=== PATIENT | female | born 1955 | race Caucasian/White ===

== ENCOUNTER 2016-03-17 12:07 | Emergency (ER) | payer OTHER ==
[2016-03-17 12:19] VITALS: TEMP 98.5; BMI 27.9
[2016-03-17] MEDS ORDERED: SODIUM CHLORIDE 0.9% 3 ML FLUSH FLUSH PRN (12:22)
[2016-03-17] MEDS ORDERED: PANTOPRAZOLE 40 MG VIAL IV ONE (12:26)
--- NOTE | 2016-03-17 12:35 | EDPRACDOC ---
- General Information Chief Complaint: Abdominal Pain Stated Complaint: UPPER ABDOMINAL PAIN Time Seen by Provider: 03/17/16 12:22 Information Source: Patient Mode Of Arrival: Car Home Medications: Home Medications Ergocalciferol (Vitamin D2) [Vitamin D2 (ergocalciferol)] 50,000 units PO WE Levothyroxine Sodium [Synthroid] 50 mcg PO DAILY 12/09/13 Fish Oil/Dha/Epa [Fish Oil 1,200 mg Fish Oil] 1 cap PO DAILY 09/11/15 Flaxseed/Omega3,6,9/Fatty Acid [Flax Seed Oil 1,300 mg Softgel] 1 cap PO DAILY 09/11/15 Glucosamine/D3/Boswellia Cheyanne [Osteo Bi-Flex Caplet] 1 tab PO DAILY 09/11/15 Ketoprofen 50 mg PO BID PRN #20 capsule 09/11/15 Magnesium 250 mg PO DAILY 09/11/15 Pregabalin [Lyrica] 225 mg PO BID 09/11/15 Azithromycin [Zithromax] 250 mg PO DAILY #6 tablet 11/23/15 Diazepam [Valium] 5 mg PO BID PRN 11/23/15 Pentazocine HCl/Naloxone HCl [Talwin Nx Tablet] 1 each PO BID PRN #20 tablet Prednisone [Deltasone, Orasone] 20 mg PO BID #12 tab 11/23/15 Omeprazole 20 mg PO DAILY #20 capsule. 03/17/16 Ondansetron HCl [Zofran] 4 mg PO Q8H PRN #15 tab 03/17/16 Allergies/Adverse Reactions: Allergies Allergy/AdvReac Type Severity Reaction Status Date / Time No Known Allergies Allergy Verified 03/17/16 12:20 - History of Present Illness Onset: 1 week HPI: Patient reports epigastric pain worse with laying, decreased appetite intermittently x 2 wks, worse over the last week. Patient reports nausea and occasionally vomiting. No fever, chills, diarrhea. No hx of similar. Pain Location: Reports: Epigastric Pain Context: Reports: Spontaneous Pain Severity: Mild Pain Quality: Reports: Burning, Cramping Pain Radiation: Reports: No Radiation Modifying Factors: improves with: Position Female Associated Signs & Symptoms: Reports: Nausea, Vomiting. 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 Denies: Pneumonia Musculoskeletal History: Reports: Arthritis (oa L HIP) Psychological History: Reports: Depression, Anxiety Systemic History: Reports: Hypothyroidism - Family Medical History Reports: Hypertension (MOTHER), Diabetes (MOTHER,UNCLE), Cancer (AUNT- COLON, SISTER- BREAST), Stroke (GRANDMOTHER), Cardiac Disorders (FATHER-HI) - Social Medical History Smoking Status: Light tobacco smoker (less than 5/day) ETOH: None Substance Abuse: None Lives In: Home EDM Review of Systems - Review of Systems ROS Negative Except as Marked: Yes All systems reviewed and were negative except as marked Constitutional: No Symptoms Reported Eyes: No Symptoms Reported Ears: No Symptoms Reported Throat: No Symptoms Reported Nose: No Symptoms Reported Respiratory: No Symptoms Reported Cardiovascular: No Symptoms Reported Gastrointestinal: Nausea, Pain, Vomiting. negative: Constipation, Diarrhea Genitourinary: No Symptoms Reported Neurological: No Symptoms Reported - Physical Exam Constitutional: Alert (Awake), No apparent distress Oriented to: Time, Person, Place Last recorded Vital Signs: Last Vital Signs Temp 98.5 F 03/17/16 12:15 Pulse 87 03/17/16 12:15 Resp 18 03/17/16 12:15 BP 122/20 L 03/17/16 12:15 Pulse Ox 97 03/17/16 12:15 Oxygen Pulse Oxygen Saturation 97 O2 Device Room Air Oxygen Flow Rate Fraction of Inspired Oxygen ( FIO2) - HEENT Head: Normal ( normocephalic) Eye Exam: Normal (PERRL, EOMI, Sclera white) Nose: No Symptoms Reported (septum midline) Neck: Normal (FROM, trachea at midline) - Respiratory/Cardiovascular Respiratory: Normal - CTA (BBS clear to auscultation without adventitious sounds ) Cardiovascular: Normal (RRR without murmur, gallop or rub) - GI Auscultation: Normal (NABS) Tenderness: Mild, RUQ, LUQ, Epigastric - Musculoskeletal Back: Normal (Non-Tender) Extremities: Normal (Normal tone, Pulses 2+ No cyanosis or edema, FROM) - Integumentary Skin: Normal, Warm, Dry Lymphatics: Normal (no adenopathy) - Neurologic Memory Impaired: Normal Motor Function: Normal (Normal tone, Pulses 2+ No cyanosis or edema, FROM) Mood Description: Normal - Re-evaluation Re-evaluation 1 Re-evaluation Time: 13:16 Discussed with patient the need for followup for further evaluation possible gallbladder workup. Nausea medication and PPI for home. Return if worse/ different. Stay hydrated. - Results 03/17/16 12:33 03/17/16 12:33 WBC 9.8 xk/uL (3.8-10.8) 03/17/16 12:33 RBC 4.67 xM/uL (4.20-5.40) 03/17/16 12:33 Hgb 14.3 g/dL (12.0-16.0) 03/17/16 12:33 Hct 42.5 % (36-47) 03/17/16 12:33 MCV 91 fL (81-99) 03/17/16 12:33 MCH 30.7 pg (27-32) 03/17/16 12:33 MCHC 33.8 g/dl (33-36) 03/17/16 12:33 RDW 13.2 % (11.5-14.5) 03/17/16 12:33 Plt Count 309 xk/uL (130-400) 03/17/16 12:33 MPV 8.4 fL (7.4-10.4) 03/17/16 12:33 Neut % (Auto) 57.3 % (45-76) 03/17/16 12:33 Lymph % (Auto) 33.1 % (17-44) 03/17/16 12:33 [place] % (Auto) 7.5 % (3-10) 03/17/16 12:33 Eos % (Auto) 0.7 % (0-5) 03/17/16 12:33 Baso % (Auto) 1.4 % (0-2) 03/17/16 12:33 Absolute Neuts (auto) 5.59 xk/uL (1.7-8.2) 03/17/16 12:33 Absolute Lymphs (auto) 3.23 xk/uL (0.65-4.75) 03/17/16 12:33 Sodium 139 mEq/L (137-146) 03/17/16 12:33 Potassium 4.1 mEq/L (3.5-5.1) 03/17/16 12:33 Chloride 102 mEq/L (98-107) 03/17/16 12:33 Carbon Dioxide 26 mMOL/L (22-33) 03/17/16 12:33 Anion Gap 15 mEq/L (8-16) 03/17/16 12:33 BUN 14 MG/DL (7-17) 03/17/16 12:33 Creatinine 0.80 MG/DL (0.52-1.04) 03/17/16 12:33 Estimated GFR (MDRD) > 60 mL/min (>=60) 03/17/16 12:33 Glucose 98 MG/DL (70-99) 03/17/16 12:33 Calculated Osmolality 269 MOs/Kg (270-290) L 03/17/16 12:33 Calcium 9.7 MG/DL (8.4-10.2) 03/17/16 12:33 Total Bilirubin 0.5 MG/DL (0.2-1.3) 03/17/16 12:33 AST 17 IU/L (14-36) 03/17/16 12:33 ALT 25 IU/L (9-52) 03/17/16 12:33 Alkaline Phosphatase 67 IU/L (55-165) 03/17/16 12:33 Total Protein 7.8 G/DL (6.3-8.2) 03/17/16 12:33 Albumin 4.5 G/DL (3.5-5.0) 03/17/16 12:33 Lipase 79 U/L (23-300) 03/17/16 12:33 Urine Color Pale yell0w 03/17/16 12:30 Urine Clarity Hazy 03/17/16 12:30 Urine pH 7.0 (5.0-8.0) 03/17/16 12:30 Ur Specific [place] 1.010 (1.003-1.035) 03/17/16 12:30 Urine Protein Neg (NEG/TRACE) 03/17/16 12:30 Urine Glucose (UA) Neg (NEGATIVE) 03/17/16 12:30 Urine Ketones Neg (NEGATIVE) 03/17/16 12:30 Urine Occult Blood Trace (NEG/TRACE) 03/17/16 12:30 Urine Nitrite Neg (NEGATIVE) 03/17/16 12:30 Urine Bilirubin Neg (NEGATIVE) 03/17/16 12:30 Urine Urobilinogen 0.2 MG/DL (0-1) 03/17/16 12:30 Ur Leukocyte Esterase Trace (NEGATIVE) 03/17/16 12:30 Urine RBC 2-5 (0-5) 03/17/16 12:30 Urine WBC 0-2 (0-5) 03/17/16 12:30 Ur Epithelial Cells 2+ 03/17/16 12:30 Urine Bacteria Few (NEG/FEW) 03/17/16 12:30 Lab Results 03/17/16 03/17/16 03/17/16 12:33 12:33 12:30 WBC 9.8 RBC 4.67 Hgb 14.3 Hct 42.5 MCV 91 MCH 30.7 MCHC 33.8 RDW 13.2 Plt Count 309 MPV 8.4 Neut % (Auto) 57.3 Lymph % (Auto) 33.1 [place] % (Auto) 7.5 Eos % (Auto) 0.7 Baso % (Auto) 1.4 Absolute Neuts (auto) 5.59 Absolute Lymphs (auto) 3.23 Sodium 139 Potassium 4.1 Chloride 102 Carbon Dioxide 26 Anion Gap 15 BUN 14 Creatinine 0.80 Estimated GFR (MDRD) > 60 Glucose 98 Calculated Osmolality 269 L Calcium 9.7 Total Bilirubin 0.5 AST 17 ALT 25 Alkaline Phosphatase 67 Total Protein 7.8 Albumin 4.5 Lipase 79 Urine Color Pale yell0w Urine Clarity Hazy Urine pH 7.0 Ur Specific [place] 1.010 Urine Protein Neg Urine Glucose (UA) Neg Urine Ketones Neg Urine Occult Blood Trace Urine Nitrite Neg Urine Bilirubin Neg Urine Urobilinogen 0.2 Ur Leukocyte Esterase Trace Urine RBC 2-5 Urine WBC 0-2 Ur Epithelial Cells 2+ Urine Bacteria Few - EKG EKG #1 EKG Time: 12:41 -: Yes EKG interpreted by me Rate: bpm: 72 [place]: Normal Rhythm: NSR Block: None ST: Normal Decision Time to Discharge: 13:30 - Departure Disposition: Home Condition: Stable Final Diagnosis: Epigastric abdominal pain Instructions: Non-pharmacological Pain Management Therapies for Adults (GEN), Acute Abdominal Pain (ED), Abdominal Pain (ED) Education/Counseling Given To: Patient Education/Counseling Given Regarding: Diagnosis, Treatment, Prognosis, Follow Up Referrals: Cierra Carrasquillo MD [Primary Care Provider] - 1-2 days Fracisco Mitchell MD [Staff Provider No Admit] - One Week Prescriptions: Omeprazole 20 mg PO DAILY #20 capsule. Ondansetron HCl [Zofran] 4 mg PO Q8H PRN #15 tab PRN Reason: Nausea/Vomiting Additional Instructions: Please followup with PCP in 1-2days. Consider followup with GI specialist for further as discussed. Return to ED if symptoms worsen/change or concerns arise.
[2016-03-17 12:45] LABS: AUTOMATED BASOPHIL 1.4 % (0-2); AUTOMATED EOSINOPHIL 0.7 % (0-5); AUTOMATED LYMPH 33.1 % (17-44); AUTOMATED MONOCYTE 7.5 % (3-10); AUTOMATED NEUTROPHIL 57.3 % (45-76); MPV 8.4 fL (7.4-10.4)
[2016-03-17 12:52] LABS: WBC/URINE 0-2 (0-5)
[2016-03-17 12:57] LABS: BLOOD UREA NITROGEN 14 MG/DL (7-17); CALCIUM 9.7 MG/DL (8.4-10.2); CALCULATED OSMOLALITY 269 MOs/Kg (270-290); CHLORIDE 102 mEq/L (98-107); GLUCOSE 98 MG/DL (70-99); SODIUM LEVEL 139 mEq/L (137-146); TOTAL PROTEIN 7.8 G/DL (6.3-8.2)
[2016-03-17 13:04] LABS: LEUKOCYTES/URINE TRACE (NEGATIVE); NITRITE/URINE NEG (NEGATIVE); URINE OCCULT BLOOD TRACE (NEG/TRACE)
--- NOTE | 2016-03-17 13:27 | DIRPT ---
CLINICAL DATA: 61-year-old female with right upper quadrant and epigastric pain for 2 weeks. EXAM: US ABDOMEN LIMITED - RIGHT UPPER QUADRANT COMPARISON: None. FINDINGS: Gallbladder: The gallbladder is slightly contracted but unremarkable. There is no evidence of cholelithiasis or acute cholecystitis. Common bile duct: Diameter: 2 mm. There is no evidence of intrahepatic or extrahepatic biliary dilatation. Liver: No focal lesion identified. Within normal limits in parenchymal echogenicity. IMPRESSION: Unremarkable right upper quadrant ultrasound. Electronically Signed By: Mingo Mayer M.D. On: 03/17/2016 13:25
[2016-03-17 14:00] VITALS: BP 121/70; PULSE 68
[2016-03-17] MEDS ORDERED: SODIUM CHLORIDE 0.9% 3 ML FLUSH FLUSH SCH (18:00)
== END 2016-03-17 14:00 | disposition home or self-care (01) ==
LOC: ED 12:07
DX: R10.13 Epigastric pain (principal)
CPT/HCPCS: 36415; 76705; 80053; 81001; 83690; 85025; 93005; 96374; 99283; S0164